=== PATIENT | female | born 1980 | race African-American/Black ===

== ENCOUNTER 2019-12-09 19:00 | Observation (INO) | payer OTHER, SELFPAY ==
--- NOTE | ~2019-12-09 | XR_ITS ---
XR chest 1V portable DATE: 12/09/2019 19:39 INDICATION: Shortness of breath, cough. Covid-positive patient. TECHNIQUE: 12/09/2019 portable AP chest at 1932 hours COMPARISON: 06/05/2014 PA chest FINDINGS: There is mild patchy infiltrate and/or atelectasis in the lower lung zones. The lungs other dominguez appear clear. No pleural effusion or pulmonary vascular congestion or pneumothorax. Normal heart size. No hilar or mediastinal enlargement. Mild degenerative spurring of the lower thoracic spine. IMPRESSION: Mild infiltrate or atelectasis in the lower lung zones Reviewed, dictated and finalized at location A.
[2019-12-09 19:03] VITALS: BP 160/106; PULSE 132; RESP 26; TEMP 37.2; O2SAT 97
--- NOTE | 2019-12-09 19:40 | ED.SOB ---
HPI - SOB/Dyspnea General Chief Complaint: Shortness of Breath/Dyspnea Stated Complaint: sob/covid Time Seen by Provider: 12/09/19 19:04 History of Present Illness HPI Narrative: Patient is a 39-year-old female who presents the ER with shortness of breath. Patient began having symptoms of COVID-19 several weeks ago. She had fevers and chills and body aches for about a week. Now for the last 5 days she has had persistent shortness of breath with exertion. Markedly worsened last night. No chest pain or chest pressure. She has frequent coughing. She has no known sick contacts other than her children who are also COVID positive but had no symptoms. Patient is on no medications right now and has not had any antibiotics/steroids/albuterol. Related Data Home Medications Medication Instructions Recorded Confirmed etonogestrel-ethinyl estradiol 0.015 - 0.12 vag ring VAGINAL 3XW 12/09/19 12/10/19 Allergies Allergy/AdvReac Type Severity Reaction Status Date / Time No Known Allergies Allergy Mild Verified 12/09/19 19:09 Review of Systems Review of Systems: All systems reviewed & are unremarkable except as noted in HPI and below Constitutional: Constitutional: Reports chills (Resolved), Reports fatigue and Reports fever(s) (Resolved) ENT: Denies nasal congestion and Denies sore throat Cardiovascular: Cardiovascular: Denies chest pain, Reports rapid heart rate and Denies radiating jaw, neck or arm pain Respiratory: Respiratory: Reports cough, Reports dyspnea and Denies wheezing Gastrointestinal: Gastrointestinal: Denies abdominal pain, Denies nausea and Denies vomiting [facility] Past Medical History Medical History (Updated 12/10/19 @ 04:55 by Paco Sutton MD) Morbid obesity BMI 45.5 Surgical History Surgical History (Updated 12/09/19 @ 19:48 by Paco Sutton MD) History of foot surgery Social History Social History (Updated 12/09/19 @ 19:48 by Paco Sutton MD) Smoking status: Never smoker Alcohol intake: never Substance use: never Gender identity (if verbalized by the patient): Female Sexual Orientation (if Verbalized by the Patient): Straight or Heterosexual Spiritual care concerns: No Exam Narrative: Exam Narrative: GENERAL: Uncomfortable-appearing, obese, and in no acute distress. HEAD: Normocephalic, atraumatic. CHEST: Rales noted throughout with increased respiratory rate. HEART: Tachycardic and regular. Normal peripheral pulses. ABDOMEN: Soft, nontender, nondistended. EXTREMITIES: Normal range of motion. No edema. SKIN: Warm, dry, no rash. NEURO: Alert and oriented x3. PSYCH: Normal mood and affect. Course Course Emergency Course: Admit to hospitalist service for observation. X-ray with pneumonia. Azithromycin ordered as well as Decadron. Reevaluation(s) Reevaluation #1: While in the room I had the patient jog in place for 1 minute. She became hypoxic down to 87% on room air and her heart rate went up into the 150s. Will recommend admission for observation as well as steroids after the rest of evaluation is finished. Date: 12/09/19 Time: 19:50 Vital Signs Vital signs: Vital Signs Temperature 98.9 F 12/09/19 19:03 Pulse Rate 132 H 12/09/19 19:03 Respiratory Rate 26 H 12/09/19 19:03 Blood Pressure 160/106 H 12/09/19 19:03 Pulse Oximetry 97 12/09/19 19:03 Temperature 98.3 F 12/10/19 04:00 Pulse Rate 87 12/10/19 04:00 Respiratory Rate 18 12/10/19 04:00 Blood Pressure 153/71 H 12/10/19 04:00 Pulse Oximetry 98 12/10/19 04:00 MDM - SOB/Dyspnea Lab Data Result diagrams: 12/09/19 19:50 12/09/19 19:50 Labs: Lab Results 12/09/19 12/09/19 12/09/19 Range/Units 19:50 19:50 19:50 WBC 4.9 (4.5-10.0) K/mm3 RBC 4.81 (4.2-5.4) M/mm3 Hgb 13.3 (12.0-15.0) g/dL Hct 41.4 (37.0-47.0) % MCV 86.1 (80-100) fl MCH 27.7 (26-34) pg MCHC 32.1 (32-36) g/dl RDW 13.7 (11.5-
[2019-12-09] MEDS: SODIUM CHLORIDE 0.9% IV 1,000 ML 999 ML IV CONT ×2 (19:55→21:34)
[2019-12-09 20:02] LABS: Basophils Percent Auto 0.2 % (0.2-1.2); Eosinophils Absolute Auto 0.1 K/mm3 (0-0.3); Eosinophils Percent Auto 1.4 % (0-4.4); Hematocrit 41.4 % (37.0-47.0); Hemoglobin 13.3 g/dL (12.0-15.0); Immature Granulocyte Absolute 0.01 K/mm3 (0.00-0.031); Immature Granulocyte Percent A 0.2 % (0-0.5); Lymphocytes Absolute Auto 2.97 K/mm3 (0.9-3.2); Lymphocytes Percent Auto 61.1 % (18.3-44.2); Mean Corpuscular HGB Conc 32.1 g/dl (32-36); Mean Corpuscular Hemoglobin 27.7 pg (26-34); Mean Corpuscular Volume 86.1 fl (80-100); Mean Platelet Volume 10.2 fl (7.4-10.4); Monocytes Absolute Auto 0.5 K/mm3 (0.1-0.6); Monocytes Percent Auto 9.7 % (2.6-8.5); Neutrophils Absolute Auto 1.3 K/mm3 (1.3-6.7); Neutrophils Percent Auto 27.4 % (45.5-73.1); Platelet Count Result 279 k/mm3 (150-375); Red Blood Count 4.81 M/mm3 (4.2-5.4); Red Cell Distribution Width 13.7 % (11.5-14.5); White Blood Count 4.9 K/mm3 (4.5-10.0)
[2019-12-09 20:06] LABS: INR 0.9; Prothrombin Time 12.2 Seconds (11.1-14.7)
[2019-12-09 20:07] LABS: Partial Thromboplastin Time 26.5 SECONDS (22.3-36.8)
[2019-12-09 20:16] LABS: Lactic Acid Reflex 2.6 mmol/L (0.7-2.1)
[2019-12-09 20:20] LABS: Alanine Aminotransferase 19 U/L (4-35); Albumin Level 3.5 g/dL (3.5-5.1); Alkaline Phosphatase 81 U/L (38-126); Anion Gap 10 mmol/L (8-16); Aspartate Amino Transferase 42 U/L (14-36); Bilirubin,Total 0.4 mg/dL (0.2-1.3); Blood Urea Nitrogen 8 mg/dL (7-17); CRP 2.3 mg/dL (<1.0); Calcium 8.4 mg/dL (8.4-10.2); Carbon Dioxide 22 mmol/L (22-30); Chloride 106 mmol/L (98-107); Estimated CRCL calculation 111 ml/min; Estimated Glomerular Filt Rate > 60; Glucose 111 mg/dL (65-105); Potassium 3.1 mmol/L (3.4-5.0); Sodium 138 mmol/L (137-145)
[2019-12-09 21:05] VITALS: BP 142/80; PULSE 82; RESP 23; O2SAT 100
[2019-12-09] MEDS: DEXAMETHASONE SOD PHOS INJ 4 MG/ML VIAL 6 MG IV PUSH (21:34)
[2019-12-09 22:54] LABS: Reflex Lactic Acid Yes or No Add Lactic
[2019-12-09 23:08] VITALS: BP 165/94; PULSE 92; RESP 26; O2SAT 98
[2019-12-09 23:23] LABS: Lactic Acid 1.2 mmol/L (0.7-2.1)
[2019-12-10 00:12] VITALS: BP 161/81; PULSE 108; RESP 33; O2SAT 97
--- NOTE | 2019-12-10 00:30 | ADMGEN ---
This patient, Chata Cesar, was admitted to [facility] Surg Room 327-01. Patient/family oriented to hospital policies and general routines including ID bracelet, bed and alarms, visiting hours, pain management, procedures, bathroom and other care routines, personal items, smoking policy, room service/diet, and visiting hours. Valuables list has been completed. Information on how to activate the Rapid Response Team has been discussed. Patient/Family are encouraged to report perceived risks to care and to ask questions if they do not understand what they are told or what they should do.
[2019-12-10 00:45] VITALS: BP 169/96; PULSE 109; RESP 18; TEMP 36.9; O2SAT 97; BMI 45.4
[2019-12-10] MEDS: SODIUM CHLORIDE 0.9% IV 1,000 ML 125 ML IV CONT (01:03)
[2019-12-10 04:00] VITALS: BP 153/71; PULSE 87; RESP 18; TEMP 36.8; O2SAT 98
--- NOTE | 2019-12-10 04:27 | PM.IMHP ---
H&P: HPI History of Present Illness Date/Time: 12/10/19 04:45 Chief complaint: Shortness of breath, COVID-19 positive Narrative: Chata Cesar is a 39 year old female with a past medical history of morbid obesity who presented to the ER with shortness of breath after recent diagnosis with COVID-19 on 12/04/2019. The patient may have gotten COVID-19 from her children. They have both tested positive but are completely asymptomatic. The patient states that she has been having symptoms since November 26. She started with a dry cough a couple of days later she began having fevers. She has also had accompanying loss of sense of taste and smell. She reported that the fevers persisted until the . She was having fevers as high as 102.6. Once the fevers stopped she began having a slightly productive cough but her cough was productive of clear sputum. She began having shortness of breath within the last 4 or 5 days. She denies any chest pain. She has not noticed any lower extremity swelling or calf pain. She keeps having paroxysmals of coughing associated with increased episodes of shortness of breath. While the patient was in the ER her oxygen saturations were between 97 and 100%. The ER physician had the patient get up and run in place for 1 minutes. At the end of 1 minutes the patient had oxygen saturations of 87% . She had mild infiltrates or atelectasis in the lower lung zones. She was subsequently admitted as observation. She had received Decadron in the ER as well as a dose of azithromycin. Review of Systems Review of Systems: Narrative: 12 systems were reviewed with pertinent positives and negatives per HPI. Except as documented in the HPI, all other systems were reviewed and are negative. [facility] Past Medical History Medical History (Updated 12/10/19 @ 07:19 by Ashlee Watson DO) Morbid obesity BMI 45.5 Surgical History Surgical History (Updated 12/09/19 @ 19:48 by Paco Sutton MD) History of foot surgery Family History Family History (Updated 12/10/19 @ 07:16 by Ashlee Watson DO) Father Diabetes mellitus Hypertension HIV (human immunodeficiency virus infection) due to drug abuse TB (pulmonary tuberculosis) Mother Diabetes mellitus Hypertension Sibling Diabetes mellitus Hypertension Social History Social History (Updated 12/10/19 @ 07:18 by CHECO Olivas Social History: Primary care physician: Dr. Saba Lane Smoking status: Never smoker Alcohol intake: never Substance use: never Living arrangements: with family Additional living arrangements comments: She lives with her 2 sons ages 13 and 17. 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 Gender identity (if verbalized by the patient): Female Sexual Orientation (if Verbalized by the Patient): Straight or Heterosexual Spiritual care concerns: No Meds Home Medications and Allergies Home Medications Medication Instructions Recorded Confirmed Type etonogestrel-ethinyl estradiol 0.015 - 0.12 vag ring VAGINAL 3XW 12/09/19 12/10/19 History Allergies Allergy/AdvReac Type Severity Reaction Status Date / Time No Known Allergies Allergy Mild Verified 12/09/19 19:09 Vital Signs Vital Signs - 24 hr 12/09/19 19:03 12/09/19 21:05 12/09/19 23:08 Temperature 98.9 F Pulse Rate 132 H 82 92 Respiratory Rate 26 H 23 H 26 H Blood Pressure 160/106 H 142/80 H 165/94 H Pulse Oximetry 97 100 98 12/10/19 00:12 12/10/19 00:45 Temperature 98.5 F Pulse Rate 108 H 109 H Respiratory Rate 33 H 18 Blood Pressure 161/81 H 169/96 H Pulse Oximetry 97 97 Exam Narrative: Exam Narrative: PHYSICAL EXAM: WEIGHT 112.8 kg BMI 45.5 General: HEENT: Respiratory: Cardiovascular: Gastrointestinal: Skin: Musculoskeletal: Neurological:
[2019-12-10 06:29] LABS: Hematocrit 37.7 % (37.0-47.0); Mean Corpuscular HGB Conc 31.8 g/dl (32-36); Mean Corpuscular Hemoglobin 27.7 pg (26-34); Mean Corpuscular Volume 87.1 fl (80-100); Mean Platelet Volume 10.1 fl (7.4-10.4); Platelet Count Result 289 k/mm3 (150-375); Red Blood Count 4.33 M/mm3 (4.2-5.4); Red Cell Distribution Width 13.8 % (11.5-14.5); White Blood Count 3.6 K/mm3 (4.5-10.0)
[2019-12-10 06:51] LABS: Alanine Aminotransferase 19 U/L (4-35); Albumin Level 3.3 g/dL (3.5-5.1); Alkaline Phosphatase 74 U/L (38-126); Anion Gap 5 mmol/L (8-16); Aspartate Amino Transferase 40 U/L (14-36); Bilirubin,Total 0.2 mg/dL (0.2-1.3); Blood Urea Nitrogen 6 mg/dL (7-17); CRP 1.6 mg/dL (<1.0); Calcium 7.6 mg/dL (8.4-10.2); Carbon Dioxide 24 mmol/L (22-30); Chloride 107 mmol/L (98-107); Estimated CRCL calculation 151 ml/min; Estimated Glomerular Filt Rate > 60; Glucose 141 mg/dL (65-105); Lactate Dehydrogenase 600 U/L (313-618); Potassium 3.5 mmol/L (3.4-5.0); Sodium 136 mmol/L (137-145)
[2019-12-10 08:00] VITALS: BP 155/80; PULSE 72; RESP 18; TEMP 36.2; O2SAT 100
== END 2019-12-10 09:40 | disposition home or self-care (01) ==
LOC: ANHED 23:19 → ANH3MEDSUR 23:48
PROVIDERS: Admitting Provider Internal Medicine; Emergency Provider Emergency Medicine; PCP Family Medicine; Visit Provider Physician Assistant
DX: U07.1 COVID-19 (principal); J12.89 Other viral pneumonia; R03.0 Elevated blood-pressure reading, without diagnosis of hypertension; E66.01 Morbid (severe) obesity due to excess calories; Z68.42 Body mass index [BMI] 45.0-49.9, adult
CPT/HCPCS: 36415; 71045; 80053; 82728; 83605; 83615; 85025; 85027; 85610; 85730; 86140; 87040; 96360; 96361; 96365; 96375; 99285; G0378; G0379; J0456; J1100; J7030

== ENCOUNTER 2020-01-16 09:24 | Outpatient (CLI) | payer OTHER, SELFPAY ==
--- NOTE | ~2020-01-16 | XR_ITS ---
EXAMINATION: XR chest 2V DATE: 01/16/2020 10:09 INDICATION: Cough, history of COVID 19 TECHNIQUE: PA and lateral views of the chest are obtained. COMPARISON: 12/09/2019 FINDINGS: Previously described bibasilar airspace opacities have resolved. There is no pleural effusi on or pneumothorax. The cardiomediastinal silhouette is normal. The visualized bones and soft tissues are unremarkable. IMPRESSION: 1. No acute cardiopulmonary abnormality. Reviewed, dictated and finalized at location A.
== END 2020-01-16 09:25 | disposition home or self-care (01) ==
LOC: ANHIMG 09:43
PROVIDERS: PCP Family Medicine; Visit Provider Family Medicine
DX: R05 Cough (principal)
CPT/HCPCS: 71046

== ENCOUNTER 2021-09-08 17:46 | Outpatient (CLI) | payer OTHER, SELFPAY ==
--- NOTE | ~2021-09-08 | MM_ITS ---
EXAMINATION: MM screening [facility] BI w bulmaro HISTORY: Baseline screening mammogram2 TECHNIQUE: Craniocaudal and mediolateral oblique 3-D tomosynthesis images were obtained and synthetic 2-D images were generated. CAD analysis was submitted and interpreted. COMPARISON: None, baseline BREAST PARENCHYMAL COMPOSITION: The breasts are almost entirely fatty. FINDINGS: There is no suspicious mass, calcification, or architectural distortion to suggest malignan cy in either breast. IMPRESSION: 1. No mammographic evidence of malignancy. 2. Recommend routine screening mammography in one year. BI-RADS Category 1: Negative Reviewed, dictated and finalized at location A.
== END 2021-09-08 17:47 | disposition home or self-care (01) ==
PROVIDERS: PCP Family Medicine; Visit Provider Family Medicine
DX: Z12.31 Encounter for screening mammogram for malignant neoplasm of breast (principal)
CPT/HCPCS: 77063; 77067

== ENCOUNTER 2022-01-19 13:57 | Outpatient (CLI) | payer OTHER, MEDICAID, SELFPAY ==
--- NOTE | ~2022-01-19 | US_ITS ---
EXAMINATION: US pelvic complete w TV DATE: 01/19/2022 15:29 INDICATION: MENORRHAGIA TECHNIQUE: Multiple transabdominal and endovaginal sonographic images of the pelvis were obtained. COMPARISON: None. FINDINGS: Uterus: 9.6 x 6.9 x 6.5 cm. At least 2 uterine fibroids are present, measuring up to 3.5 cm and 3.9 c m. Endometrial complex measures 2 mm. Right Ovary: 4.0 x 3.3 x 3.7 cm. Vascular flow is present. Left Ovary: 3.6 x 2.4 x 2.4 cm. Vascular flow is present. There is no free fluid in the pelvis. IMPRESSION: Uterine fibroids. Otherwise normal pelvic sonogram findings. Reviewed, dictated and finalized at location K.
== END 2022-01-19 13:58 | disposition home or self-care (01) ==
PROVIDERS: PCP Family Medicine; Visit Provider Obstetrics & Gynecology
DX: N92.0 Excessive and frequent menstruation with regular cycle (principal); D25.9 Leiomyoma of uterus, unspecified
CPT/HCPCS: 76830; 76856

== ENCOUNTER 2022-12-17 07:29 | Outpatient (CLI) | payer BC, SELFPAY ==
--- NOTE | ~2022-12-17 | MM_ITS ---
EXAMINATION: MM screening [facility] BI w bulmaro HISTORY: Screening mammogram TECHNIQUE: Craniocaudal and mediolateral oblique 3-D tomosynthesis images were obtained and synthetic 2-D images were generated. CAD analysis was submitted and interpreted. COMPARISON: 09/08/2021 BREAST PARENCHYMAL COMPOSITION:There are scattered areas of fibroglandular density. FINDINGS: No suspicious mass, calcification, or architectural distortion are identified in either carmel ast to suggest malignancy. There has been no suspicious interval change. IMPRESSION: No mammographic evidence of malignancy. Recommend routine screening mammography in one year. BI-RADS Category 1: Negative Reviewed, dictated and finalized at location .
== END 2022-12-17 07:30 | disposition home or self-care (01) ==
LOC: ANHIMG 07:32
PROVIDERS: PCP Family Medicine; Visit Provider Obstetrics & Gynecology
DX: Z12.31 Encounter for screening mammogram for malignant neoplasm of breast (principal)
CPT/HCPCS: 77063; 77067

== ENCOUNTER 2023-12-20 07:12 | Outpatient (CLI) | payer BC, SELFPAY ==
--- NOTE | ~2023-12-20 | MM_ITS ---
EXAMINATION: MM screening [facility] BI w bulmaro HISTORY: Screening mammogram TECHNIQUE: Craniocaudal and mediolateral oblique 3-D tomosynthesis images were obtained and synthetic 2-D images were generated. CAD analysis was submitted and interpreted. COMPARISON: 12/17/2022, 09/08/2021 BREAST PARENCHYMAL COMPOSITION:Not Dense. The breasts are almost entirely fatty FINDINGS: No suspicious mass, calcification, or architectural distortion are identified in either carmel ast to suggest malignancy. There has been no suspicious interval change. IMPRESSION: No mammographic evidence of malignancy. Recommend routine screening mammography in one year. BI-RADS Category 1: Negative Reviewed, dictated and finalized at location .
== END 2023-12-20 07:13 | disposition home or self-care (01) ==
PROVIDERS: PCP Family Medicine; Visit Provider Obstetrics & Gynecology
DX: Z12.31 Encounter for screening mammogram for malignant neoplasm of breast (principal)
CPT/HCPCS: 77063; 77067

== ENCOUNTER 2024-12-20 13:09 | Outpatient (CLI) | payer BC, SELFPAY ==
--- NOTE | ~2024-12-20 | MM_ITS ---
EXAMINATION: MM screening [facility] BI w bulmaro HISTORY: Screening TECHNIQUE: Craniocaudal and mediolateral oblique 3-D tomosynthesis images were obtained and synthetic 2-D images were generated. CAD analysis was submitted and interpreted. COMPARISON: 09/08/2021 BREAST PARENCHYMAL COMPOSITION: Not Dense: The breasts are almost entirely fatty. FINDINGS: There is no evidence of suspicious mass, calcification, or architectural distortion to suggest malignancy in either breast. [There has been no significant interval change. IMPRESSION: 1. No mammographic evidence of malignancy. Recommend routine screening mammography in one year. BI-RADS Category 1: Negative Reviewed, dictated, and finalized at Location A. Reviewed, dictated and finalized at location Q. IMPRESSION: 1. No mammographic evidence of malignancy. Recommend routine screening mammogra phy in one year. BI-RADS Category 1: Negative
== END 2024-12-20 13:10 | disposition home or self-care (01) ==
LOC: ANHFOHIMG 13:10
PROVIDERS: Visit Provider Obstetrics & Gynecology
DX: Z12.31 Encounter for screening mammogram for malignant neoplasm of breast (principal)
CPT/HCPCS: 77063; 77067